=== PATIENT | male | born 2000 | race Caucasian/White ===

== ENCOUNTER 2019-05-27 07:46 | Emergency (ER) | payer SELFPAY ==
[~2019-05-27] VITALS: Ht 170.2 cm; Wt 58.1 kg
--- NOTE | 2019-05-27 08:05 | NUR ---
Breakfast tray provided, poor appetite. No c/o pain/discomfort.
--- NOTE | 2019-05-27 09:40 | NUR ---
Patient is resting comfortably in bed with eyes closed, NAD noted.
--- NOTE | 2019-05-27 10:34 | NUR ---
Dr Yip seen and examined the pt. Pt went right back to sleep.
--- NOTE | 2019-05-27 13:33 | NUR ---
PATIENT AWAKE EATING. NO C/O ANY DISTRESS.
--- NOTE | 2019-05-27 13:35 | NUR ---
PATIENT WAS BEING DC PER DR ANDINO IS OK TO GO. PATIENT STARTED SCREAMING AND THREATENING STAFF. SECURITY WAS CALLED. PATIENT SAID HE WILL NOT SIGN ANY DC PAPERS.
--- NOTE | 2019-05-27 13:38 | NUR ---
Swati ludwig in [facility] - 05/27/19 at 1401 by [id number] PATIENT AWAKE EATING. NO C/O ANY DISTRESS.
--- NOTE | 2019-05-27 13:50 | NUR ---
PATIENT WAS ESCORTED BY SECURITY TO FRONT LOBBY. PATIENT TOOK ALL BELONGINGS.
== END 2019-05-27 13:50 | disposition home or self-care (01) ==
LOC: ER 07:46
DX: F15.10 Other stimulant abuse, uncomplicated (principal); Z59.0 Homelessness
CPT/HCPCS: A4663